=== PATIENT | female | born 1990 | race Two or more races ===

== ENCOUNTER 2017-11-26 16:36 | Emergency (ER) | payer MEDICAID ==
[~2017-11-26] VITALS: Ht 160 cm; Wt 72.1 kg
[2017-11-26] MEDS ORDERED: PRENATAL FORMU1 EAC5 PO (16:47)
--- NOTE | 2017-11-26 17:22 | Emergency Room Report ---
History of Present Illness General Chief Complaint: Complications Source: Patient Present Illness HPI 27 yo female patient presents to ER complaining of nausea and vomiting x1day. Patient also reports loss of appetite. Patient states COY began after vomiting. Patient states insurance goes through [facility] and she is still waiting for OBGYN referral. Patient states she has a PCP provider that has given her medications. Patient reports last episode of vomiting was yesterday morning; denies blood in emesis. Patient denies fever, abdominal pain, vision changes, vaginal discharge, diarrhea, chest pain, SOB. Patient reports history of spontaneous and is concerned of symptoms. Allergies: Coded Allergies: No Known Allergies (Unverified , 11/26/17) Patient History Past Medical History: see triage record Social History: Denies: smoking, alcohol use, drug use Last Menstrual Period: 10/13/2017 Now: Yes : 2 Para: 0 Reviewed Nursing Documentation: PMH: Agreed, PSxH: Agreed Nursing Documentation-PMH Past Medical History: No Stated History Review of Systems All Other Systems: negative except mentioned in HPI Physical Exam Vital Signs Date Time Temp Pulse Resp B/P (MAP) Pulse Ox O2 Delivery O2 Flow Rate FiO2 11/26/17 16:42 97.9 78 16 104/74 96 Room Air Sp02 EP Interpretation: reviewed, normal General Appearance: no apparent distress, alert, GCS 15, non-toxic Head: normocephalic, atraumatic Eyes: bilateral eye normal inspection, bilateral eye PERRL, bilateral eye EOMI ENT: hearing grossly normal, normal pharynx, no angioedema, normal voice Neck: full range of motion, supple/symm/no masses Respiratory: chest non-tender, lungs clear, normal breath sounds, speaking full sentences Cardiovascular #1: regular rate, rhythm, no edema Gastrointestinal: normal bowel sounds, non tender, soft, non-distended, no guarding, no rebound Musculoskeletal: back normal, digits/nails normal, gait/station normal, normal range of motion, non-tender Neurologic: alert, oriented x3, responsive, motor strength/tone normal, sensory intact, speech normal Psychiatric: mood/affect normal Skin: normal color, no rash, warm/dry, well hydrated Medical Decision Making PA Attestation Dr. Fan is my supervising Physician whom patient management has been discussed with. Diagnostic Impression: Primary Impression: Vomiting of ER Course Pt. presents to the ED c/o nausea, vomiting, and COY; patient is 7 weeks . Ddx considered but are not limited to hyperemsis gravidum, esophagitis, influenza, related complications. Vital signs: are WNL, pt. is afebrile ORDERS: none required at this time, the diagnosis is clinical ED COURSE: Patient provided with Zofran for nausea symptoms. Patient advised of Black Box warning associated with medication; patient states she understands and would like medication. IV fluids provided with patient. Pelvic ultrasound. 0830 PM Discussed US results with patient. IUP present. Discussed lab results with patient. Discuss followup with OBGYN for further treatment and diagnosis. Patient reports feeling better, reports relief of acute nausea and COY symptoms. Patient resting comfortably in no acute distress, hemodynamically stable, nontoxic appearing. Patient able to tolerate fluids PO. Patient reports Zofran helped symptoms. Patient declined Rx for Zofran. DISCHARGE: Followup with primary care provider and OBGYN in 1-3 days. Patient states understanding and agreement of treatment plan. Patient questions asked and answered. ER precautions given, patient instructed to return to ER immediately for any new or worsening of symptoms including but not limited to fever, SOB, abdominal pain, vaginal discharge. Labs Test 11/26/17 17:45 White Blood Count 15.3 K/UL (4.8-10.8) Red Blood Count 4.09 M/UL (4.20-5.40) Hemoglobin 12.6 G/DL (12.0-16.0) Hematocrit 37.3 % (37.0-47.0) Mean Corpuscular Volume 91 FL (80-99) Mean Corpuscular Hemoglobin 30.8 PG (27.0-31.0) Mean Corpuscular Hemoglobin Concent 33.9 G/DL (32.0-36.0) Red Cell Distribution Width 11.8 % (11.6-14.8) Platelet Count 313 K/UL (150-450) Mean Platelet Volume 6.3 FL (6.5-10.1) Neutrophils (%) (Auto) 73.8 % (45.0-75.0) Lymphocytes (%) (Auto) 15.7 % (20.0-45.0) Monocytes (%) (Auto) 8.8 % (1.0-10.0) Eosinophils (%) (Auto) 0.8 % (0.0-3.0) Basophils (%) (Auto) 0.9 % (0.0-2.0) Urine Color Pale yellow Urine Appearance Clear Urine pH 6 (4.5-8.0) Urine Specific [place] 1.015 (1.005-1.035) Urine Protein Negative (NEGATIVE) Urine Glucose (UA) Negative (NEGATIVE) Urine Ketones Negative (NEGATIVE) Urine Occult Blood 1+ (NEGATIVE) Urine Nitrite Negative (NEGATIVE) Urine Bilirubin Negative (NEGATIVE) Urine Urobilinogen Normal MG/DL (0.0-1.0) Urine Leukocyte Esterase Negative (NEGATIVE) Urine RBC 2-4 /HPF (0 - 2) Urine WBC 0-2 /HPF (0 - 2) Urine Squamous Epithelial Cells Moderate /LPF (NONE/OCC) Urine Bacteria Moderate /HPF (NONE) Sodium Level 136 MMOL/L (136-145) Potassium Level 4.0 MMOL/L (3.5-5.1) Chloride Level 103 MMOL/L (98-107) Carbon Dioxide Level 23 MMOL/L (21-32) Anion Gap 10 mmol/L (5-15) Blood Urea Nitrogen 9 mg/dL (7-18) Creatinine 0.6 MG/DL (0.55-1.30) Estimat Glomerular Filtration Rate > 60 mL/min (>60) Glucose Level 89 MG/DL (74-106) Calcium Level 8.8 MG/DL (8.5-10.1) Total Bilirubin 0.5 MG/DL (0.2-1.0) Aspartate Amino Transf (AST/SGOT) 13 U/L (15-37) Alanine Aminotransferase (ALT/SGPT) 14 U/L (12-78) Alkaline Phosphatase 111 U/L (46-116) Total Protein 6.7 G/DL (6.4-8.2) Albumin 3.6 G/DL (3.4-5.0) Globulin 3.1 g/dL Albumin/Globulin Ratio 1.2 (1.0-2.7) Lipase 102 U/L (73-393) Human Chorionic Gonadotropin, Quant 69057 mIU/mL (1-6) CT/MRI/US Diagnostic Results CT/MRI/US Diagnostic Results : Imaging Test Ordered: Pelvic Ultrasound Impression IUP present Last Vital Signs Date Time Temp Pulse Resp B/P (MAP) Pulse Ox O2 Delivery O2 Flow Rate FiO2 11/26/17 16:42 97.9 78 16 104/74 96 Room Air Status: improved Disposition: HOME, SELF-CARE Condition: Stable Patient Instructions: First Trimester of , [id number], Nausea and Vomiting, Adult, [id number] Additional Instructions: Followup with primary care provider and OBGYN in 1-3 days. Take medications as directed. Patient questions asked and answered. ER precautions given, patient instructed to return to ER immediately for any new or worsening of symptoms. Sean Mendoza Nov 26, 2017 17:22
[2017-11-26 18:16] LABS: BASOPHILS % (AUTO) 0.9 % (0.0-2.0); EOSINOPHILS % (AUTO) 0.8 % (0.0-3.0); HEMATOCRIT 37.3 % (37.0-47.0); HEMOGLOBIN 12.6 G/DL (12.0-16.0); LYMPHOCYTES % (AUTO) 15.7 % (20.0-45.0); MEAN CORPUSCULAR VOLUME 91 FL (80-99); MONOCYTES % (AUTO) 8.8 % (1.0-10.0); NEUTROPHILS % (AUTO) 73.8 % (45.0-75.0); PLATELET COUNT 313 K/UL (150-450); RED BLOOD COUNT 4.09 M/UL (4.20-5.40); RED CELL DISTRIBUTION WIDTH 11.8 % (11.6-14.8); WHITE BLOOD COUNT 15.3 K/UL (4.8-10.8)
[2017-11-26 18:18] LABS: APPEARANCE,URINE CLEAR; BILIRUBIN, URINE NEGATIVE (NEGATIVE); COLOR,URINE PALE YELLOW; GLUCOSE, URINE (UA) NEGATIVE (NEGATIVE); KETONES,URINE NEGATIVE (NEGATIVE); LEUKOCYTE ESTERASE ,URINE NEGATIVE (NEGATIVE); NITRITE,URINE NEGATIVE (NEGATIVE); PH,URINE 6 (4.5-8.0); PROTEIN,URINE NEGATIVE (NEGATIVE); UROBILINOGEN,URINE NORMAL MG/DL (0.0-1.0)
[2017-11-26 18:29] LABS: ANION GAP 10 mmol/L (5-15); BLOOD UREA NITROGEN 9 mg/dL (7-18); CALCIUM 8.8 MG/DL (8.5-10.1); CARBON DIOXIDE 23 MMOL/L (21-32); CHLORIDE 103 MMOL/L (98-107); CREATININE 0.6 MG/DL (0.55-1.30); SODIUM 136 MMOL/L (136-145)
[2017-11-26 18:33] LABS: ALANINE AMINOTRANSFERASE 14 U/L (12-78); ALBUMIN 3.6 G/DL (3.4-5.0); ALBUMIN/GLOBULIN RATIO 1.2 (1.0-2.7); ALKALINE PHOSPHATASE 111 U/L (46-116); ASPARTATE AMINO TRANSFERASE 13 U/L (15-37); BILIRUBIN,TOTAL 0.5 MG/DL (0.2-1.0)
[2017-11-26 21:35] VITALS: BP 104/74
--- NOTE | 2017-11-27 14:17 | Diagnostic Imaging Report ---
Indication: Pelvic pain Technique: Grayscale and duplex Doppler imaging of the pelvis performed utilizing a transabdominal scan and endovaginal scan. Comparison: None Findings: There is evidence of an intrauterine . Yolk sac is identified. [place]-rump length identified. There is no definite heart motion identified. Suggest correlation with quantitative beta-hCG and obtain follow-up as needed. The crown-rump length measurement is a 6 week 2 day . The gestational sac measurement is a 5 week 6 day . Given the early stage of the , follow-up may be needed. Viability is not certain this time. There is no free fluid. The ovaries demonstrate dopplerable blood flow and appear normal. IMPRESSION: Single intrauterine viability indeterminate. Findings may represent intrauterine demise as heart tones should be visible by this stage of the . However the gestational age is questionable given some discrepancy between crown-rump length and gestational sac measurements which should be concordant. Given the early stage of , suggest repeating the examination one to 2 weeks and correlating with quantitative beta hCG in series.
== END 2017-11-26 21:35 | disposition home or self-care (01) ==
LOC: EMR 17:59
DX: O21.9 Vomiting of pregnancy, unspecified (principal); Z3A.01 Less than 8 weeks gestation of pregnancy; O26.891 Other specified pregnancy related conditions, first trimester; R51 Headache
CPT/HCPCS: 36415; 76801; 76856; 80053; 81003; 83690; 84702; 85025; 86850; 86900; 86901; 87086; 96360; 99284

== ENCOUNTER 2017-12-01 13:42 | Observation (INO) | payer OTHER, MEDICAID ==
[~2017-12-01] VITALS: Ht 160 cm; Wt 72.6 kg
[~2017-12-01 13:42] MED LIST: PRENATAL FORMU1 EAC5 PO
--- NOTE | 2017-12-01 14:15 | Emergency Room Report ---
History of Present Illness General Chief Complaint: Vomiting Source: Patient Present Illness HPI Patient presents with complaints of persistent nausea vomiting Patient is approximately 7 and half weeks she reports that For the past one half weeks she has had multiple episodes of vomiting Patient was here previously had done somewhat better however now returns with continuing symptoms denies any abdominal pain or cramping at this denies any vaginal spotting patient is a she had a miscarriage at 6 weeks about 2 years ago Denies any diarrhea denies any flank pain Allergies: Coded Allergies: No Known Allergies (Unverified , 11/26/17) Patient History Past Medical History: see triage record Pertinent Family History: none Last Menstrual Period: 10/13/17 Now: Yes - 7 10/27 weeks Reviewed Nursing Documentation: PMH: Agreed, PSxH: Agreed Nursing Documentation-PMH Past Medical History: No Stated History Review of Systems All Other Systems: negative except mentioned in HPI Physical Exam Vital Signs Date Time Temp Pulse Resp B/P (MAP) Pulse Ox O2 Delivery O2 Flow Rate FiO2 12/01/17 13:46 97.7 74 16 109/70 100 Room Air Sp02 EP Interpretation: reviewed, normal General Appearance: well appearing, no apparent distress Head: normocephalic, atraumatic Eyes: bilateral eye PERRL, bilateral eye EOMI ENT: hearing grossly normal, normal pharynx, TMs + canals normal, uvula midline Neck: full range of motion, supple, no meningismus, no bony tend Respiratory: lungs clear, normal breath sounds, no rhonchi, no respiratory distress, no retraction, no accessory muscle use Cardiovascular #1: normal peripheral pulses, regular rate, rhythm, no edema, no gallop, no JVD, no murmur Gastrointestinal: normal bowel sounds, non tender - I cannot appreciate a abdomen at this time, soft, no mass, no organomegaly, non-distended, no guarding, no hernia, no pulsatile mass, no rebound Genitourinary: no CVA tenderness Musculoskeletal: normal inspection Neurologic: oriented x3, responsive, dealer relationship manager III-XII nml as tested, motor strength/ tone normal, sensory intact Psychiatric: mood/affect normal Skin: normal color, no rash, warm/dry, palpation normal Lymphatic: normal inspection, no adenopathy Medical Decision Making Diagnostic Impression: Primary Impression: Hyperemesis gravidarum ER Course With the patient's history and examination, multiple differentials considered, including but not limited to , ectopic , ovarian torsion, gastritis, cholecystitis, pancreatitis, appendicitis Patient has ultrasound from several days ago showing intrauterine Patient's white blood cell count has elevated Appears to have ketones in the urine Patient further hydrated anti-emetics provided on reevaluation the patient requires further inpatient care Labs Test 12/01/17 13:05 White Blood Count 16.5 K/UL (4.8-10.8) Red Blood Count 4.41 M/UL (4.20-5.40) Hemoglobin 14.0 G/DL (12.0-16.0) Hematocrit 39.5 % (37.0-47.0) Mean Corpuscular Volume 90 FL (80-99) Mean Corpuscular Hemoglobin 31.6 PG (27.0-31.0) Mean Corpuscular Hemoglobin Concent 35.3 G/DL (32.0-36.0) Red Cell Distribution Width 11.5 % (11.6-14.8) Platelet Count 335 K/UL (150-450) Mean Platelet Volume 6.7 FL (6.5-10.1) Neutrophils (%) (Auto) 84.1 % (45.0-75.0) Lymphocytes (%) (Auto) 7.9 % (20.0-45.0) Monocytes (%) (Auto) 7.1 % (1.0-10.0) Eosinophils (%) (Auto) 0.2 % (0.0-3.0) Basophils (%) (Auto) 0.7 % (0.0-2.0) Urine Color Yellow Urine Appearance Clear Urine pH 6 (4.5-8.0) Urine Specific [place] 1.015 (1.005-1.035) Urine Protein 1+ (NEGATIVE) Urine Glucose (UA) Negative (NEGATIVE) Urine Ketones 3+ (NEGATIVE) Urine Occult Blood 1+ (NEGATIVE) Urine Nitrite Negative (NEGATIVE) Urine Bilirubin Negative (NEGATIVE) Urine Urobilinogen Normal MG/DL (0.0-1.0) Urine Leukocyte Esterase Negative (NEGATIVE) Urine RBC 2-4 /HPF (0 - 2) Urine WBC 0-2 /HPF (0 - 2) Urine Squamous Epithelial Cells Few /LPF (NONE/OCC) Urine Bacteria Few /HPF (NONE) Sodium Level 137 MMOL/L (136-145) Potassium Level 3.7 MMOL/L (3.5-5.1) Chloride Level 102 MMOL/L (98-107) Carbon Dioxide Level 25 MMOL/L (21-32) Anion Gap 10 mmol/L (5-15) Blood Urea Nitrogen 8 mg/dL (7-18) Creatinine 0.6 MG/DL (0.55-1.30) Estimat Glomerular Filtration Rate > 60 mL/min (>60) Glucose Level 80 MG/DL (74-106) Calcium Level 9.4 MG/DL (8.5-10.1) Total Bilirubin 0.5 MG/DL (0.2-1.0) Aspartate Amino Transf (AST/SGOT) 20 U/L (15-37) Alanine Aminotransferase (ALT/SGPT) 32 U/L (12-78) Alkaline Phosphatase 106 U/L (46-116) Total Protein 7.7 G/DL (6.4-8.2) Albumin 3.9 G/DL (3.4-5.0) Globulin 3.8 g/dL Albumin/Globulin Ratio 1.0 (1.0-2.7) Lipase 80 U/L (73-393) Human Chorionic Gonadotropin, Quant 201899 mIU/mL (1-6) CT/MRI/US Diagnostic Results CT/MRI/US Diagnostic Results : Impression pelvic ultrasound 11/26:IMPRESSION: Single intrauterine viability indeterminate. Findings may represent intrauterine demise as heart tones should be visible by this stage of the . However the gestational age is questionable given some discrepancy between crown-rump length and gestational sac measurements which should be concordant. Given the early stage of , suggest repeating the examination one to 2 weeks and correlating with quantitative beta hCG in series. Last Vital Signs Date Time Temp Pulse Resp B/P (MAP) Pulse Ox O2 Delivery O2 Flow Rate FiO2 12/01/17 13:46 97.7 74 16 109/70 100 Room Air Status: improved Disposition: ADMITTED INPATIENT Condition: Serious TIA WEAVER D.O. Dec 01, 2017 14:15
[2017-12-01 15:31] LABS: BASOPHILS % (AUTO) 0.7 % (0.0-2.0); EOSINOPHILS % (AUTO) 0.2 % (0.0-3.0); HEMATOCRIT 39.5 % (37.0-47.0); LYMPHOCYTES % (AUTO) 7.9 % (20.0-45.0); MEAN CORPUSCULAR VOLUME 90 FL (80-99); MONOCYTES % (AUTO) 7.1 % (1.0-10.0); NEUTROPHILS % (AUTO) 84.1 % (45.0-75.0); PLATELET COUNT 335 K/UL (150-450); RED BLOOD COUNT 4.41 M/UL (4.20-5.40); RED CELL DISTRIBUTION WIDTH 11.5 % (11.6-14.8); WHITE BLOOD COUNT 16.5 K/UL (4.8-10.8)
[2017-12-01 15:34] LABS: APPEARANCE,URINE CLEAR; BILIRUBIN, URINE NEGATIVE (NEGATIVE); GLUCOSE, URINE (UA) NEGATIVE (NEGATIVE); KETONES,URINE 3+ (NEGATIVE); LEUKOCYTE ESTERASE ,URINE NEGATIVE (NEGATIVE); NITRITE,URINE NEGATIVE (NEGATIVE); PH,URINE 6 (4.5-8.0); PROTEIN,URINE 1+ (NEGATIVE); UROBILINOGEN,URINE NORMAL MG/DL (0.0-1.0)
[2017-12-01 15:35] LABS: COLOR,URINE YELLOW
[2017-12-01 15:50] LABS: ANION GAP 10 mmol/L (5-15); BLOOD UREA NITROGEN 8 mg/dL (7-18); CALCIUM 9.4 MG/DL (8.5-10.1); CARBON DIOXIDE 25 MMOL/L (21-32); CHLORIDE 102 MMOL/L (98-107); CREATININE 0.6 MG/DL (0.55-1.30); POTASSIUM 3.7 MMOL/L (3.5-5.1); SODIUM 137 MMOL/L (136-145)
[2017-12-01 15:57] LABS: ALANINE AMINOTRANSFERASE 32 U/L (12-78); ALBUMIN 3.9 G/DL (3.4-5.0); ALKALINE PHOSPHATASE 106 U/L (46-116); ASPARTATE AMINO TRANSFERASE 20 U/L (15-37); BILIRUBIN,TOTAL 0.5 MG/DL (0.2-1.0)
[2017-12-01] MEDS ORDERED: Pyridoxine 50mg tab ORAL STA (16:09)
[2017-12-01 17:21] VITALS: BP 133/84
--- NOTE | 2017-12-01 17:23 | History & Physical ---
History and Physical History & Physicial GYNECOLOGY HISTORY & PHYSICAL CC: Nausea & Vomiting of HPI: Audrey is a 27yo at 7w0d by LMP 10/13/17 who presents with 1 week of nausea and vomiting and inability to tolerate PO. She was seen in the ED a few days ago with the same complaint and sent home, but returned today with continued inability to tolerate PO. This is a planned and desired . She reports some mild intermittent cramping but no pelvic pain, no vaginal bleeding, and no upper abdominal pain. Has not yet established care, plans to see doctors at [facility] on [address] later this month. No other complaints. PMHx: Denies hx of HTN, asthma, DM, thyroid dz PSHx: [place] teeth, otherwise denies OBHx: - SAb @ 6w 2y ago GYNHx: LMP 10/13/17. Known hx of fibroids with spotting 1w prior to menses, no heavy bleeding, no pain. no known hx of cysts, last Pap was last year, no hx of abnormal Pap. 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 Mother when she was young 2/2 drug abuse Vitals: T 97.7, P 74, BP 109/70, RR 16, O2 100% RA Exam: Gen: NAD HEENT: OP clear, MM dry, no thyromegaly CV: RRR Pulm: No increased work of breathing, normal chest rise Abd: soft, NTND Pelvic: deferred, perineum dry Ext: FROM, WWP, no calf TTP Labs: UA: LE neg, Nitrite neg, 3+ ketones, 1+ blood CMP: NA 137, K 3.7, Cr 0.6, AST/ALT 20/32 CBC: 16.5>14.0/39.5<335 hC,464 Imaging: (Pelvic US 11/26/17) Findings: There is evidence of an intrauterine . Yolk sac is identified. [place]- rump length identified. There is no definite heart motion identified. Suggest correlation with quantitative beta-hCG and obtain follow-up as needed. The crown -rump length measurement is a 6 week 2 day . The gestational sac measurement is a 5 week 6 day . Given the early stage of the , follow-up may be needed. Viability is not certain this time. There is no free fluid. The ovaries demonstrate dopplerable blood flow and appear normal. IMPRESSION: Single intrauterine viability indeterminate. Findings may represent intrauterine demise as heart tones should be visible by this stage of the . However the gestational age is questionable given some discrepancy between crown-rump length and gestational sac measurements which should be concordant. Given the early stage of , suggest repeating the examination one to 2 weeks and correlating with quantitative beta hCG in series. ASSESSMENT & PLAN: 27yo with nausea and vomiting of and inability to tolerate PO , plan for admission until she is able to tolerate PO. # Nausea/Vomiting: compazine 10mg q6h scheduled. If compazine unavailable, plan for zofran 4mg q4h scheduled. Phenergan 25mg IM as needed for breakthrough nausea/vomiting - Banana bag followed by LR @125cc/hr - NPO for now, but OK to advance to crackers and water/juice if patient feels hungry # status: - OB ultrasound to confirm viability # Dispo: - will discharge with antiemetic regimen once able to tolerate PO Signed: Bianca Chairez MD, MPH Bianca Chairez M.D. Dec 01, 2017 17:23
[2017-12-01 17:50] VITALS: BP 99/60
[2017-12-01 18:48] VITALS: BP 131/81
[2017-12-01] MEDS ORDERED: Folic Acid 1 MG, Magnesium Sulfate 2,000 MG, Multivitamin - 12 Injection 10 ML in NS w/... IV SCH (19:30)
[2017-12-01] MEDS ORDERED: Thiamine HCl 100 MG in NS 55 ML IVPB SCH (19:30)
[2017-12-01 20:00] VITALS: BP 111/71
[2017-12-02] VITALS: BP 91/50
[2017-12-02] MEDS ORDERED: LR 1000ml 1,000 ML IV SCH (03:30)
[2017-12-02 04:00] VITALS: BP 90/52
[2017-12-02 08:41] VITALS: BP 99/69
[2017-12-02 09:32] LABS: ANION GAP 7 mmol/L (5-15); BLOOD UREA NITROGEN 4 mg/dL (7-18); CALCIUM 8.6 MG/DL (8.5-10.1); CARBON DIOXIDE 23 MMOL/L (21-32); CHLORIDE 106 MMOL/L (98-107); CREATININE 0.6 MG/DL (0.55-1.30); POTASSIUM 4.1 MMOL/L (3.5-5.1); SODIUM 136 MMOL/L (136-145)
--- NOTE | 2017-12-02 10:42 | Diagnostic Imaging Report ---
Indication: Positive test, hyperemesis gravidarum, pain Technique: Transabdominal and transvaginal images Comparison: none Findings: Uterus measures 9.4 cm in length by 4.8 cm AP. Within the endometrium, there is a gestational sac. This demonstrates a pole with a 9 mm, corresponding to an estimated gestational age of 7 weeks zero days. There is positive heart activity, heart heart rate 133 bpm. No evidence of subchorionic hemorrhage. Cervix is closed, endocervical canal measuring 3.2 cm in length. There are multiple uterine fibroids The left ovary measures 3 cm in length. The right ovary measures 4 cm in length. No adnexal mass demonstrated. There is trace free pelvic fluid Impression: 7 weeks zero day single live intrauterine . No unusual features Uterine fibroids Free cul-de-sac fluid, presumed physiologic
[2017-12-02] MEDS ORDERED: COMPAZINE10 MG ORAL (10:49)
[2017-12-02] MEDS ORDERED: ZOFRAN ODT8 MG ORAL (10:50)
--- NOTE | 2017-12-02 10:51 | General Progress Note ---
Progress Note Progress Note GYNECOLOGY PROGRESS NOTE S: Patient has not had any emesis since arrival on the unit. Received phenergan IV last night for breakthrough, but has been doing well on compazine. No EPS. Tolerating PO. No bleeding or pelvic pain. No current complaints. Has appt with OB to establish care on 12/09. US done this AM confirmed viability with FHR 133, CRL lynn 7w0d c/w her LMP. O: Vitals: Tmax 98.7, BP 99/69, P 70, RR 20, O2 100% RA Exam: Gen: NAD CV: RRR Pulm: no increased work of breathing, normal chest rise bilaterally Abd: soft, NTND Perineum: dry Ext: no calf TTP Labs: BMP: NA 136, K 4.1, CR 0.6, Gluc 111 (non-fasting) IMAGING: OB US report pending Images reviewed CRL measuring 7w0d FHR 133 Fibroids visible A/P: 27yo at 7w1d by LMP c/w US today admitted with nausea/vomiting of with inability to tolerate PO, now tolerating PO on current regimen of compazine 10mg q6h. # N/V of - tolerating PO - d/c home with Compazine 10mg q6h ATC and Zofran 8mg ODT in case she cannot tolerate Compazine outpatinet # status - viability confirmed on US today - patient reassured - has appt to establish PNC with doctors at [facility] on 12/09, recommend keeping that appointment # Dispo - cleared for discharge - my contact info provided to patient and will provide Rx for Compazine and Zofran prior to discharge - f/u with OB as planned Signed: Bianca Chairez MD CASTING ROOM HELPER Bianca Chairez M.D. Dec 02, 2017 10:51
--- NOTE | 2017-12-02 11:00 | Discharge Summary ---
Discharge Summary Hospital Course Date of Admission Dec 01, 2017 at 15:20 Date of Discharge 12/02/2017 Admitting Diagnosis HYPEREMESIS GRAVIDARIUM Reason for Hospitalization: Inability to tolerate PO HPI Audrey Briceno is a 27 year old female who was admitted on Dec 01, 2017 at 15: 20 for Hyperemesis Gravidarium. She was seen in the ED on 11/26 for similar complaint and discharged home but re-presented with inability to tolerate PO despite receiving IV hydration and antiemetics in the ED. Consultations none Procedures IV hydration Hospital Course Ms Briceno was admitted from the ED and given IV hydration and antiemetics. She responded well to Compazine q6h with 1 dose of Phenergan given last night. She did not have any vomiting during her admission and is currently able to tolerate PO. She will be discharged home with Compazine and Zofran and will establish care with OB providers at [facility] on 12/09. Discharge Medications Continued Medications: Ondansetron Odt* (Zofran Odt*) 8 Mg Tab.rapdis 8 MG ORAL Q6H PRN for Nausea & Vomiting, #30 TAB Vit W-Ca,Fe,FA(<1 mg) ( Formula) 1 Each Tablet 1 EACH PO DAILY, TAB Prochlorperazine (Compazine*) 10 Mg Tablet 10 MG ORAL Q6H PRN for Nausea & Vomiting, #40 TAB Discharge Condition Upon Discharge: stable Discharge Disposition Patient was discharged to Home (01) Discharge Diagnoses: (1) Hyperemesis gravidarum Bianca Chairez M.D. Dec 02, 2017 11:00
[2017-12-02] MEDS ORDERED: Tubing IV Secondary IV ONE (11:08)
[2017-12-02] MEDS ORDERED: LR 1000ml ONE (11:08)
== END 2017-12-02 11:09 | disposition home or self-care (01) ==
LOC: EMR 14:05 → INTOOBSV 15:20 → 3E 15:20 → EDBEDREQ 16:01
DX: O21.0 Mild hyperemesis gravidarum (principal); O34.11 Maternal care for benign tumor of corpus uteri, first trimester; Z3A.01 Less than 8 weeks gestation of pregnancy; Z82.49 Family history of ischemic heart disease and other diseases of the circulatory system; Z80.9 Family history of malignant neoplasm, unspecified; Z81.3 Family history of other psychoactive substance abuse and dependence
CPT/HCPCS: 36415; 76801; 76830; 80048; 80053; 81003; 83690; 84702; 85025; 99285; G0378; J0780; J2550; J3475; J3490; J7120